=== PATIENT | female | born 1995 | race American Indian/Alaskan Native ===

== ENCOUNTER 2017-05-16 18:42 | Emergency (ER) | payer OTHER ==
[2017-05-16] MEDS ORDERED: TYLENOL ONE (19:39)
[2017-05-16] MEDS ORDERED: TYLENOL PO ONE (19:41)
[2017-05-16 20:18] VITALS: BP 119/81
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
== END 2017-05-16 22:20 | disposition home or self-care (01) ==
LOC: ED 18:42
DX: S13.4XXA Sprain of ligaments of cervical spine, initial encounter (principal); V89.2XXA Person injured in unspecified motor-vehicle accident, traffic, initial encounter; Y93.89 Activity, other specified; Y92.89 Other specified places as the place of occurrence of the external cause; Y99.8 Other external cause status
CPT/HCPCS: 99282

== ENCOUNTER 2017-05-17 19:11 | Emergency (ER) | payer OTHER ==
[2017-05-17] MEDS ORDERED: TYLENOL ONE (19:58)
[2017-05-17] MEDS ORDERED: TYLENOL PO ONE (20:07)
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
[2017-05-18 01:44] VITALS: BP 116/85
== END 2017-05-18 01:44 | disposition home or self-care (01) ==
LOC: ED 19:11
DX: S23.9XXS Sprain of unspecified parts of thorax, sequela (principal); X58.XXXS Exposure to other specified factors, sequela
CPT/HCPCS: 72070; 72100